=== PATIENT | male | born 1995 | race Caucasian/White ===

== ENCOUNTER 2020-03-21 02:13 | Emergency (ER) | payer BC ==
[~2020-03-21] VITALS: Ht 170.2 cm; Wt 74.8 kg
[2020-03-21 06:14] VITALS: Ht 170.2 cm; Wt 74.8 kg
[2020-03-21 07:05] VITALS: BP 110/78
[2020-03-22 05:08] LABS: RAPID PLASMA REAGIN Reactive (Non Reactive)
== END 2020-03-21 07:05 | disposition home or self-care (01) ==
LOC: ED 02:13
PROVIDERS: Emergency Medicine
DX: J45.909 Unspecified asthma, uncomplicated (principal); R21 Rash and other nonspecific skin eruption
CPT/HCPCS: J0561